=== PATIENT | male | born 1985 | race Caucasian/White ===

== ENCOUNTER → 2022-09-10 16:46 | Outpatient (CLI) | payer OTHER, MEDICAID, SELFPAY | PROVIDERS: Visit Provider Student in an Organized Health Care Education/Training Program | DX: R10.9 Unspecified abdominal pain (principal) | CPT/HCPCS: 87086 ==

== ENCOUNTER 2022-09-10 17:10 | Emergency (ER) | payer OTHER, MEDICAID, SELFPAY ==
[2022-09-10 17:17] VITALS: BP 161/97; PULSE 88; RESP 17; TEMP 36.8; O2SAT 98; BMI 31.0
[2022-09-10] MEDS: PANTOPRAZOLE 40 MG VIAL IV (18:03)
--- NOTE | 2022-09-10 18:07 | ED.ABDPAIN ---
HPI - Abdominal Pain <LAW Wyatt Last Filed: 09/10/22 19:02> General Chief Complaint: Abdominal Pain Stated Complaint: ABD. PAIN Time Seen by Provider: 09/10/22 17:16 Source: patient Mode of arrival: Ambulatory History of Present Illness HPI narrative: This is a 37-year-old male presents to the emergency department due to a 9 day history of burning generalized abdominal pain. States that he has not had changes in bowel movements but and does not report any blood in the stool. No acute sharp abdominal pain just a generalized cramping. Denies any nausea, vomiting, or any other concerning signs or symptoms. No fevers. No URI symptoms. Related Data Previous Rx's Medication Instructions Recorded pantoprazole 40 mg tablet,delayed 40 mg PO DAILY 14 days #14 tabs 09/10/22 release Allergies Allergy/AdvReac Type Severity Reaction Status Date / Time No Known Drug Allergies Allergy Verified 09/10/22 17:55 Review of Systems <LAW Wyatt Last Filed: 09/10/22 19:02> Review of Systems Narrative: GENERAL: Denies chills, fatigue, malaise, fever, sweats. HEENT: Denies sinus pain, ear pain, sore throat, difficulty swallowing, dizziness. RESPIRATORY: Denies dyspnea, cough, wheezing, hemoptysis, sputum. CARDIOVASCULAR: Denies chest pain, palpitations, orthopnea, edema, GASTROINTESTINAL: Reports generalized burning abdominal pain, Denies nausea, vomiting, diarrhea, constipation, melena. : Denies dysuria, frequency, incontinence, hematuria, urinary retention. MUSCULOSKELETAL: denies weakness, joint pain, or bony pain SKIN: Denies rash, skin lesions, or other NEUROLOGIC: Denies weakness, headache, numbness, change in speech, confusion, seizures, incoordination. PSYCHIATRIC: No concerning psychosocial issues. 12 point review of systems is negative except for those stated above Patient History <LAW Wyatt Last Filed: 09/10/22 19:02> Social History Smoking Status: Current some day smoker Smoking Status: Current some day smoker tobacco type: cigars alcohol intake frequency: a few times a week Substance Use Type: does not use Exam <LAW Wyatt Last Filed: 09/10/22 19:02> Narrative Exam Narrative: GENERAL: Well-developed patient, in mild distress. HEAD: Atraumatic. Normocephalic. EYES: Pupils equal round and reactive. Extraocular motions intact. No scleral icterus. No injection or drainage. ENT: Nose without bleeding, purulent drainage. Throat without erythema, tonsillar hypertrophy or exudate. Airway patent. NECK: Trachea midline. Non tender CARDIOVASCULAR: Regular rate and rhythm without murmurs, gallops, or rubs. RESPIRATORY: Clear to auscultation. Breath sounds equal bilaterally. No wheezes, rales, or rhonchi. GASTROINTESTINAL: Abdomen soft, mild tenderness to palpation with deep palpation nondistended. EXTREMITIES: No edema or joint tenderness. BACK: Nontender without deformity or crepitance. No flank tenderness. NEURO: AOx3. SKIN: No rash or erythema of visible areas Initial Vital Signs Initial Vital Signs: Vital Signs Temperature 98.2 F 09/10/22 17:17 Pulse Rate 88 09/10/22 17:17 Respiratory Rate 17 09/10/22 17:17 Blood Pressure 161/97 H 09/10/22 17:17 Pulse Oximetry 98 09/10/22 17:17 Oxygen Delivery Method 09/10/22 17:17 <Mark Melgar DO - Last Filed: 09/13/22 02:37> Initial Vital Signs Initial Vital Signs: Vital Signs Temperature 98.2 F 09/10/22 17:17 Pulse Rate 88 09/10/22 17:17 Respiratory Rate 17 09/10/22 17:17 Blood Pressure 161/97 H 09/10/22 17:17 Pulse Oximetry 98 09/10/22 17:17 Oxygen Delivery Method 09/10/22 17:17 Course <Ziggy Betancourt PA-C - Last Filed: 09/10/22 19:02> Orders Ordered: Discontinued Medications Pantoprazole Sodium (Pantoprazole 40 Mg Vial) 40 mg IV NOW ONE Stop: 09/10/22 17:53 Last Admin: 09/10/22 18:03 Dose: 40 mg Documented By: SOHA Vital Signs Vital signs: Vital Signs - 8 hr 09/10/22 17:17 Temperature 98.2 F Pulse Rate 88 Respiratory Rate 17 Blood Pressure 161/97 H Pulse Oximetry 98 Oxygen Delivery Method Room Air <Mark Melgar DO - Last Filed: 09/13/22 02:37> Orders Ordered: Discontinued Medications Pantoprazole Sodium (Pantoprazole 40 Mg Vial) 40 mg IV NOW ONE Stop: 09/10/22 17:53 Last Admin: 09/10/22 18:03 Dose: 40 mg Documented By: SOHA Vital Signs Vital signs: Vital Signs - 8 hr 09/10/22 17:17 Temperature 98.2 F Pulse Rate 88 Respiratory Rate 17 Blood Pressure 161/97 H Pulse Oximetry 98 Oxygen Delivery Method Room Air MDM - Abdominal Pain <Ziggy Betancourt PA-C - Last Filed: 09/10/22 19:02> Lab Data Result diagrams: 09/10/22 17:25 09/10/22 17:25 Labs: Lab Results 09/10/22 09/10/22 Range/Units 17:25 17:25 WBC 7.1 (4.5-11.0) X10^3/uL RBC 5.23 (4.5-5.9) X10^6/uL Hgb 16.1 (13.5-17.5) g/dL Hct 45.6 (41-53) % MCV 87.2 (80-100) fL MCH 30.8 (26-34) PG MCHC 35.3 (30-36) % RDW 13.1 (11.6-14.8) % Plt Count 220 (150-400) X10^3/uL Neut % (Auto) 58.8 (50-75) % Lymph % (Auto) 30.9 (25-40) % Wallace % (Auto) 7.7 (3-14) % Eos % (Auto) 1.9 L (2-4) % Baso % (Auto) 0.7 (0-2) % Neut # (Auto) 4100 (0003-8801) /uL Lymph # (Auto) 2200 (8880-1157) /uL Wallace # (Auto) 500 (0-900) /uL Eos # (Auto) 100 (0-450) /uL Baso # (Auto) 100 (0-100) /uL Sodium 138 (137-145) mmol/L Potassium 3.8 (3.4-5.1) mmol/L Chloride 102 (98-107) mmol/L Carbon Dioxide 27 (22-32) mmol/L BUN 7 L (9-20) mg/dL Creatinine 0.67 (0.66-1.25) mg/dL Estimated GFR > 60 (>60) mL/min BUN/Creatinine Ratio 10.4 (6-22) Glucose 98 (70-100) mg/dL Calcium 9.6 (8.4-10.2) mg/dL Total Bilirubin 0.8 (0.2-1.3) mg/dL AST 28 (17-59) IU/L ALT 35 (<50) IU/L Alkaline Phosphatase 65 (38-126) U/L Total Protein 7.7 (6.3-8.2) g/dL Albumin 4.3 (3.5-5.0) g/dL Globulin 3.4 (1.7-4.1) g/dL Albumin/Globulin Ratio 1.3 (1.0-2.8) Lipase 47 (23-300) U/L Point of care testing: Urine Dip Bedside Urine Glucose Negative Bedside Urine Bilirubin - Negative Bedside Urine Ketone - Negative Urine Specific Elbe 1.010 Bedside Urine Occult Blood - Negative Bedside Urine pH 6.0 Bedside Urine Protein - Negative Bedside Urine Urobilinogen +/- 1mg Bedside Urine Nitrite - Negative Bedside Urine Leukocytes - Negative Esterase MDM Narrative Medical decision making narrative: This is a 37-year-old male presents emergency department due to 9 day history of burning abdominal pain. Suspect some kind of GI ulcer based on description pain. Lab work was completely unremarkable. No blood count or signs of anemia or electrolyte abnormalities. Shared decision making was utilized and no CT of the abdomen was ordered due to the patient's normal vitals as well as unremarkable labs. Patient will be prescribed pantoprazole with instructions to follow up with primary care provider for further workup if abdominal pain continues. <Mark Melgar DO - Last Filed: 09/13/22 02:37> Lab Data Labs: Lab Results 09/10/22 09/10/22 Range/Units 17:25 17:25 WBC 7.1 (4.5-11.0) X10^3/uL RBC 5.23 (4.5-5.9) X10^6/uL Hgb 16.1 (13.5-17.5) g/dL Hct 45.6 (41-53) % MCV 87.2 (80-100) fL MCH 30.8 (26-34) PG MCHC 35.3 (30-36) % RDW 13.1 (11.6-14.8) % Plt Count 220 (150-400) X10^3/uL Neut % (Auto) 58.8 (50-75) % Lymph % (Auto) 30.9 (25-40) % Wallace % (Auto) 7.7 (3-14) % Eos % (Auto) 1.9 L (2-4) % Baso % (Auto) 0.7 (0-2) % Neut # (Auto) 4100 (3358-4451) /uL Lymph # (Auto) 2200 (3047-8027) /uL Wallace # (Auto) 500 (0-900) /uL Eos # (Auto) 100 (0-450) /uL Baso # (Auto) 100 (0-100) /uL Sodium 138 (137-145) mmol/L Potassium 3.8 (3.4-5.1) mmol/L Chloride 102 (98-107) mmol/L Carbon Dioxide 27 (22-32) mmol/L BUN 7 L (9-20) mg/dL Creatinine 0.67 (0.66-1.25) mg/dL Estimated GFR > 60 (>60) mL/min BUN/Creatinine Ratio 10.4 (6-22) Glucose 98 (70-100) mg/dL Calcium 9.6 (8.4-10.2) mg/dL Total Bilirubin 0.8 (0.2-1.3) mg/dL AST 28 (17-59) IU/L ALT 35 (<50) IU/L Alkaline Phosphatase 65 (38-126) U/L Total Protein 7.7 (6.3-8.2) g/dL Albumin 4.3 (3.5-5.0) g/dL Globulin 3.4 (1.7-4.1) g/dL Albumin/Globulin Ratio 1.3 (1.0-2.8) Lipase 47 (23-300) U/L Point of care testing: Urine Dip Bedside Urine Glucose Negative Bedside Urine Bilirubin - Negative Bedside Urine Ketone - Negative Urine Specific Elbe 1.010 Bedside Urine Occult Blood - Negative Bedside Urine pH 6.0 Bedside Urine Protein - Negative Bedside Urine Urobilinogen +/- 1mg Bedside Urine Nitrite - Negative Bedside Urine Leukocytes - Negative Esterase Discharge Plan Departure Patient Disposition: Home Clinical Impression: Abdominal pain Instructions: DI for Abdominal Pain-Adult Activity Restrictions/Additional Instructions: Thank you for coming to the [facility] Emergency Department today. Your lab work was completely unremarkable. There was no evidence of any infection and all of your electrolytes were within normal limits. I suspect that this may be some kind a viral gastrointestinal infection which should improve over time. Please continue eating a bland diet. Please take medications as prescribed. You may follow-up with your primary care provider for further workup if your pain continues. I hope you feel better soon. Prescriptions: New pantoprazole 40 mg tablet,delayed release (DR/EC) 40 mg PO DAILY 14 Days Qty: 14 0RF Referrals: Leighann Lara ND [Primary Care Provider] - Visit Report Forms: Patient Portal/API <Mark Melgar DO - Last Filed: 09/13/22 02:37> Cosign ED Attending Cosignature Attestation: I was immediately available in the department for consultation. This documentation has been reviewed and I agree with assessment and plan. Supervised by Mark Melgar DO
[2022-09-10 18:13] LABS: Add Manual Diff / Slide Review NO; Basophils Absolute Auto 100 /uL (0-100); Basophils Percent Auto 0.7 % (0-2); Eosinophils Absolute Auto 100 /uL (0-450); Eosinophils Percent Auto 1.9 % (2-4); Hematocrit 45.6 % (41-53); Hemoglobin 16.1 g/dL (13.5-17.5); Lymphocytes Absolute Auto 2200 /uL (1100-4500); Lymphocytes Percent Auto 30.9 % (25-40); Mean Corpuscular HGB Conc 35.3 % (30-36); Mean Corpuscular Hemoglobin 30.8 PG (26-34); Mean Corpuscular Volume 87.2 fL (80-100); Monocytes Absolute Auto 500 /uL (0-900); Monocytes Percent Auto 7.7 % (3-14); Neutrophils Absolute Auto 4100 /uL (1500-7000); Neutrophils Percent Auto 58.8 % (50-75); Platelet Count 220 X10^3/uL (150-400); Red Blood Cell Count 5.23 X10^6/uL (4.5-5.9); Red Cell Distribution Width 13.1 % (11.6-14.8); White Blood Cell Count 7.1 X10^3/uL (4.5-11.0)
[2022-09-10 18:19] LABS: Alanine Aminotransferase 35 IU/L (<50); Albumin 4.3 g/dL (3.5-5.0); Albumin Globulin Ratio 1.3 (1.0-2.8); Alkaline Phosphatase 65 U/L (38-126); Aspartate Aminotransferase 28 IU/L (17-59); BUN Creatinine Ratio 10.4 (6-22); Bilirubin Total 0.8 mg/dL (0.2-1.3); Blood Urea Nitrogen 7 mg/dL (9-20); Calcium 9.6 mg/dL (8.4-10.2); Carbon Dioxide 27 mmol/L (22-32); Chloride 102 mmol/L (98-107); Estimated Glomerular Filt Rate > 60 mL/min (>60); Globulin 3.4 g/dL (1.7-4.1); Glucose 98 mg/dL (70-100); HEMOLYSIS 16 (0-50); Lipase 47 U/L (23-300); Potassium 3.8 mmol/L (3.4-5.1); Sodium 138 mmol/L (137-145); Total Protein 7.7 g/dL (6.3-8.2)
[2022-09-10 19:27] VITALS: BP 128/86; PULSE 70; RESP 16; TEMP 36.9; O2SAT 98
== END 2022-09-10 19:29 | disposition home or self-care (01) ==
PROVIDERS: Emergency Provider Physician Assistant Medical; PCP Naturopath
DX: R10.84 Generalized abdominal pain (principal)
CPT/HCPCS: 36415; 80053; 81002; 81003; 83690; 85025; 87086; 96374; 99284; C9113